=== PATIENT | female | born 1975 | race African-American/Black ===

== ENCOUNTER 2017-12-22 08:30 | Emergency (ER) | payer SELFPAY ==
[2017-12-22] MEDS ORDERED: METOPROLOL TAR 25 MG TAB ONE (09:04)
[2017-12-22] MEDS ORDERED: METOPROLOL TARTRATE 5 MG/5 ML INJ IV ONE (09:04)
--- NOTE | 2017-12-22 09:12 | RAD REPORT ---
EXAM DESCRIPTION: CT - Ct Stroke Brain Wo Cont - 12/22/2017 8:55 am CLINICAL HISTORY: Numbness COMPARISON: None. TECHNIQUE: Computed axial tomography of the head was obtained. IV contrast was not requested. All CT scans are performed using dose optimization technique as appropriate and may include automated exposure control or mA/KV adjustment according to patient size. FINDINGS: An intracranial bleed is not seen . The ventricles are normal in caliber. No extra-axial fluid collection is noted. Fluid within the sinuses/ mastoids is not seen. Mild mucoperiosteal thickening involves the right max illary sinus IMPRESSION: No acute intracranial abnormality is seen. If patient's symptoms persist MRI of the bra in would be recommended. The exam was discussed with Lisa in the in the Emergency Room 9:03 a.m. December 22, 2017
--- NOTE | 2017-12-22 09:42 | RAD REPORT ---
EXAM DESCRIPTION: Malena Single View12/22/2017 9:14 am CLINICAL HISTORY: Paresthesia COMPARISON: none FINDINGS: The lungs appear clear of acute infiltrate. The heart is normal size IMPRESSION: No acute abnormalities displayed
[2017-12-22 09:57] LABS: BUN Blood Urea Nitrogen 8 mg/dL (7-18); Bicarbonate 28 mmol/L (21-32); Glucose Level 90 mg/dL (74-106); Potassium 3.7 mmol/L (3.5-5.1); Sodium Level 140 mmol/L (136-145)
[2017-12-22 10:00] LABS: Absolute Monocytes 0.4 K/uL (0.1-1.3); Absolute Neutrophil 3.3 K/uL (1.8-8.0); Basophils % 0.8 % (0-1.3); Eosinophils % 0.6 % (0-4.4); Hematocrit 33.7 % (36.0-45.0); Lymphocytes % 20.9 % (15.3-44.8); MCH 27.6 pg (27.0-35.0); MPV 8.9 fL (7.6-11.3); Monocytes % 8.2 % (3.3-12.3); RBC Red Blood Cell Count 3.96 M/uL (3.86-4.86)
[2017-12-22 10:03] LABS: Protime INR 1.03
--- NOTE | 2017-12-22 10:26 | EKG ---
Test Date: 2017-12-22 Test Time: 09:00:15 Sales Appointment Coordinator: DAIANA MEASUREMENT RESULTS: Intervals: Rate: 85 OR: 146 QRSD: 86 QT: 374 QTc: 445 [place]: P: 53 OR: 146 QRS: 5 T: 16 INTERPRETIVE STATEMENTS: Normal sinus rhythm Voltage criteria for left ventricular hypertrophy Abnormal ECG No previous ECG available for comparison Electronically Signed On 12-22-17 10:25:56 CDT by Mauricio Chu
--- NOTE | 2017-12-22 11:03 | ER ---
Nurse's Notes [facility] Name: Ratna Balderrama Age: 42 yrs Sex: Female : 1975 Arrival Date: 12/22/2017 Time: 08:31 Bed 6 Private MD: Diagnosis: Headache;Dizziness Presentation: 12/22 08:35 Presenting complaint: Patient states: frontal and occipital headache x 1 week. c/o sv dizziness that started today around 0730 and right fingers started tingling, lasted about 5 minutes. Pt pulled over and got an orange juice and decided to come to ER. Denies blurry/double vision/SOB. Transition of care: patient was not received from another setting of care. Onset of symptoms was December 22, 2017. Risk Assessment: Do you want to hurt yourself or someone else? Patient reports no desire to harm self or others. Initial Sepsis Screen: Does the patient meet any 2 criteria? No. Patient's initial sepsis screen is negative. Does the patient have a suspected source of infection? No. Patient's initial sepsis screen is negative. Care prior to arrival: None. 08:35 Method Of Arrival: Ambulatory sv 08:35 Acuity: ABDIAS 2 sv Triage Assessment: 08:35 Headache History: The patient has had previous headaches and this one is different than sv previous episodes. General: Appears in no apparent distress. uncomfortable, well developed, Behavior is calm, cooperative, appropriate for age. Pain: Complains of pain in forehead, right mosque, left mosque, left occipital area, left base of the skull, right occipital area and right base of the skull Pain currently is 4 out of 10 on a pain scale. Quality of pain is described as pressure, Pain began 1 week Is continuous, Alleviated by nothing. Also complains of no other associated symptoms. EENT: No signs and/or symptoms were reported regarding the EENT system. Neuro: Level of Consciousness is awake, alert, obeys commands, Oriented to person, place, time, situation, Tribunal Member are equal bilaterally Moves all extremities. Full function Gait is steady, Speech is normal, Facial symmetry appears normal, Facial symmetry: tongue is midline, Denies blurred vision dizziness, numbness diplopia. Cardiovascular: Patient's skin is warm and dry. Pulses are 3+ in right radial artery and left radial artery Rhythm is sinus rhythm. Respiratory: Airway is patent Respiratory effort is even, unlabored, Respiratory pattern is regular, symmetrical. Derm: Skin is pink, warm \T\ dry. Musculoskeletal: Range of motion: intact in all extremities. 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 - Social history:: Smoking status: Patient/guardian denies using tobacco. - Ebola Screening: : No symptoms or risks identified at this time. Screenin:35 Abuse screen: Denies threats or abuse. Denies injuries from another. Nutritional sv screening: No deficits noted. Tuberculosis screening: No symptoms or risk factors identified. Fall Risk None identified. 09:10 Patient has been NPO before screening. The patient is alert, able to follow commands. sv The patient does not exhibit slurred or garbled speech The patient is not exhibiting difficulty speaking. The patient does not exhibit difficulty understanding words. The patient is able to swallow own secretions with no drooling or need for suction. Patient tolerated one teaspoon of water. No drooling, immediate coughing, gurgling, or clearing of the throat was noted. The patient tolerated 90mL of water. No drooling, immediate coughing, gurgling, or clearing of the throat was noted. The patient passed the bedside swallow screening. Oral medications may be given as ordered. Contact Physician for further diet orders. Provider notified of bedside swallow screening results: Sb Bojorquez MD. Assessment: 09:39 Reassessment: Patient appears in no apparent distress at this time. No changes from sv previously documented assessment. Patient and/or family updated on plan of care and expected duration. Pain level reassessed. Patient is alert, oriented x 3, equal unlabored respirations, skin warm/dry/pink. Vital Signs: 08:43 BP 194 / 116; Pulse 102 MON; Resp 18; Temp 98; Pulse Ox 100% on R/A; Weight 90.72 kg; sv Height 5 ft. 6 in. (167.64 cm); Pain 0/10; 08:58 BP 169 / 104; Pulse 90 MON; Resp 13; Pulse Ox 100% on R/A; sv 09:20 BP 177 / 100; Pulse 72; Resp 14; Pulse Ox 100% on R/A; sv 09:36 BP 168 / 96; Pulse 73; Resp 18; Pulse Ox 99% on R/A; sv 10:25 BP 166 / 91; Pulse 66 MON; Resp 14; Pulse Ox 100% on R/A; sv 08:43 Body Mass Index 32.28 (90.72 kg, 167.64 cm) sv 08:43 Sinus Rhythm sv 08:58 Sinus Rhythm sv 09:20 Sinus Rhythm sv 10:25 Sinus Rhythm sv ED Course: 08:31 Patient arrived in ED. as 08:35 Arm band placed on Patient placed in an exam room, on a stretcher, on engine monitor, sv on pulse oximetry. 08:35 Patient has correct armband on for positive identification. Placed in gown. Bed in low sv position. Call light in reach. threat monitoring analyst on. Pulse ox on. NIBP on. Door closed. Head of bed elevated. 08:43 Sb Bojorquez MD is Attending Physician. kdr 08:49 Pepper Valadez RN is Primary Nurse. sv 08:49 EKG done, by field service technician poultry. reviewed by Sb Bojorquez MD. at1 08:[address] via wheelchair. sv 08:54 CT Stroke Brain w/o Contrast In Process Unspecified. EDMS 09:05 Initial lab(s) drawn, by md, sent to lab. Inserted saline lock: 20 gauge in left sv antecubital area, using aseptic technique. Blood collected. Flushed left antecubital with 5 ml normal saline. 09:12 Stroke CXR 1 View In Process Unspecified. EDMS 09:34 Triage completed. sv 09:39 Lab(s) recollected, by ED staff, sent to lab. sv Administered Medications: 09:10 Drug: Lopressor 2.5 mg Route: IVP; Site: left antecubital; sv 09:21 CANCELLED (Dr Bojorquez cancelled): Lopressor 25 mg PO once sv 09:28 Drug: Lopressor 2.5 mg Route: IVP; Site: left antecubital; sv 09:29 Follow up: Response: No adverse reaction sv Point of Care Testing: Blood Glucose: 09:08 Blood Glucose: 121 mg/dL; sv Ranges: Outcome: 11:02 Discharge ordered by . kdr 11:37 Patient left the ED. sg Signatures: Dispatcher [employer] Pepper Mccord RN RN sv Gay, Steven, RN RN sg Rittger, Kevin, MD MD kdr Martinez, Amelia as Gonzales, Amanda, electrical instrument maker EKG Tat1
--- NOTE | 2017-12-22 11:03 | EDPHYS ---
Physician Documentation [facility] Name: Ratna Balderrama Age: 42 yrs Sex: Female : 1975 Arrival Date: 12/22/2017 Time: 08:31 Bed 6 Private MD: ED Physician Sb Bojorquez HPI: 12/22 15:49 This 42 yrs old Black Female presents to ER via Ambulatory with complaints of Headache, kdr Dizziness. 15:50 The patient has been under a lot of stress with her mother in the hospital recently. kdr She was tearful on initial evaluation. She has not had this before. She also c/o a GARCIA for the past week. She has not had this before either.. Onset: The symptoms/episode began/occurred gradually, 1 week(s) ago. Severity of symptoms: At their worst the symptoms were mild moderate just prior to arrival, in the emergency department the symptoms are unchanged. The patient has not experienced similar symptoms in the past. 16:44 The patient has not recently seen a physician. 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 - Social history:: Smoking status: Patient/guardian denies using tobacco. - Ebola Screening: : No symptoms or risks identified at this time. ROS: 16:44 Constitutional: Negative for fever, chills, and weight loss, Eyes: Negative for injury, kdr pain, redness, and discharge, ENT: Negative for injury, pain, and discharge, Neck: Negative for injury, pain, and swelling, Cardiovascular: Negative for chest pain, palpitations, and edema, Respiratory: Negative for shortness of breath, cough, wheezing, and pleuritic chest pain, Abdomen/GI: Negative for abdominal pain, nausea, vomiting, diarrhea, and constipation, Back: Negative for injury and pain, : Negative for injury, bleeding, discharge, and swelling, MS/Extremity: Negative for injury and deformity, Skin: Negative for injury, rash, and discoloration, Psych: Negative for depression, anxiety, suicide ideation, homicidal ideation, and hallucinations, Allergy/Immunology: Negative for hives, rash, and allergies, Endocrine: Negative for neck swelling, polydipsia, polyuria, polyphagia, and marked weight changes, Hematologic/Lymphatic: Negative for swollen nodes, abnormal bleeding, and unusual bruising. 16:44 Neuro: Positive for headache, tingling, weakness, Negative for altered mental status, gait disturbance, hearing loss, loss of consciousness, numbness, seizure activity, speech changes, syncope, near syncope. Exam: 16:44 Constitutional: This is a well developed, well nourished patient who is awake, alert, kdr and in no acute distress. Head/Face: Normocephalic, atraumatic. Eyes: Pupils equal round and reactive to light, extra-ocular motions intact. Lids and lashes normal. Conjunctiva and sclera are non-icteric and not injected. Cornea within normal limits. Periorbital areas with no swelling, redness, or edema. Neck: Trachea midline, no thyromegaly or masses palpated, and no cervical lymphadenopathy. Supple, full range of motion without nuchal rigidity, or vertebral point tenderness. No Meningismus. Chest/axilla: Normal chest wall appearance and motion. Nontender with no deformity. No lesions are appreciated. Cardiovascular: Regular rate and rhythm with a normal S1 and S2. No gallops, murmurs, or rubs. Normal PMI, no JVD. No pulse deficits. Respiratory: Lungs have equal breath sounds bilaterally, clear to auscultation and percussion. No rales, rhonchi or wheezes noted. No increased work of breathing, no retractions or nasal flaring. Abdomen/GI: Soft, non-tender, with normal bowel sounds. No distension or tympany. No guarding or rebound. No evidence of tenderness throughout. Back: No spinal tenderness. No costovertebral tenderness. Full range of motion. Skin: Warm, dry with normal turgor. Normal color with no rashes, no lesions, and no evidence of cellulitis. MS/ Extremity: Pulses equal, no cyanosis. Neurovascular intact. Full, normal range of motion. Neuro: Awake and alert, GCS 15, oriented to person, place, time, and situation. Cranial nerves II-XII grossly intact. Motor strength 5/5 in all extremities. Sensory grossly intact. Cerebellar exam normal. Normal gait. Psych: Awake, alert, with orientation to person, place and time. Behavior, mood, and affect are within normal limits. Vital Signs: 08:43 BP 194 / 116; Pulse 102 MON; Resp 18; Temp 98; Pulse Ox 100% on R/A; Weight 90.72 kg; sv Height 5 ft. 6 in. (167.64 cm); Pain 0/10; 08:58 BP 169 / 104; Pulse 90 MON; Resp 13; Pulse Ox 100% on R/A; sv 09:20 BP 177 / 100; Pulse 72; Resp 14; Pulse Ox 100% on R/A; sv 09:36 BP 168 / 96; Pulse 73; Resp 18; Pulse Ox 99% on R/A; sv 10:25 BP 166 / 91; Pulse 66 MON; Resp 14; Pulse Ox 100% on R/A; sv 08:43 Body Mass Index 32.28 (90.72 kg, 167.64 cm) sv 08:43 Sinus Rhythm sv 08:58 Sinus Rhythm sv 09:20 Sinus Rhythm sv 10:25 Sinus Rhythm sv MDM: 11:02 Patient medically screened. kdr 16:44 Data reviewed: vital signs, nurses notes, lab test result(s), radiologic studies. kdr Counseling: I had a detailed discussion with the patient and/or guardian regarding: the historical points, exam findings, and any diagnostic results supporting the discharge/admit diagnosis, lab results, radiology results, the need for outpatient follow up. 12/22 08:44 Order name: Basic Metabolic Panel kdr 12/22 08:44 Order name: CBC with Diff kdr 12/22 08:44 Order name: Protime (+inr) kdr 12/22 08:44 Order name: Ptt, Activated kdr 12/22 08:44 Order name: CT Stroke Brain w/o Contrast; Complete Time: 10:16 kdr 12/22 09:16 Order name: Glucose, Ancillary Testing; Complete Time: 10:16 EDMS 12/22 08:44 Order name: Stroke CXR 1 View; Complete Time: 10:16 kdr 12/22 08:44 Order name: EKG; Complete Time: 08:44 kdr 12/22 08:44 Order name: Accucheck; Complete Time: 09:22 kdr 12/22 08:44 Order name: Cardiac monitoring; Complete Time: 09:22 kdr 12/22 08:44 Order name: EKG - Nurse/Tech; Complete Time: 09: kdr 12/22 08:44 Order name: IV Saline Lock; Complete Time: : kdr 12/22 08:44 Order name: Labs collected and sent; Complete Time: : kdr 12/22 08:44 Order name: NPO; Complete Time: : kdr 12/22 08:44 Order name: O2 Per Protocol; Complete Time: : kdr 12/22 08:44 Order name: O2 Sat Monitoring; Complete Time: : kdr 12/22 08:44 Order name: Stroke Swallow Screen; Complete Time: : kdr 12/22 09:25 Order name: Labs - recollect needed; Complete Time: 09:39 bd Administered Medications: 09:10 Drug: Lopressor 2.5 mg Route: IVP; Site: left antecubital; sv 09:21 CANCELLED (Dr Bojorquez cancelled): Lopressor 25 mg PO once sv 09:28 Drug: Lopressor 2.5 mg Route: IVP; Site: left antecubital; sv 09:29 Follow up: Response: No adverse reaction sv Point of Care Testing: Blood Glucose: 09:08 Blood Glucose: 121 mg/dL; sv Ranges: Critical Glucose Levels:Adult <50 mg/dl or >400 mg/dl <40 mg/dl or >180 mg/dl Disposition: 12/22/17 11:02 Discharged to Home. Impression: Headache, Dizziness. - Condition is Fair. - Discharge Instructions: General Headache Without Cause, Pain Without a Known Cause, Hypertension, [id number], Dizziness, [id number]. - Medication Reconciliation Form, Thank You Letter, Work release form form. - Follow up: Private Physician; When: 2 - 3 days; Reason: If symptoms return, Further diagnostic work-up, Recheck today's complaints, Continuance of care, Re-evaluation by your physician. - Problem is new. - Symptoms have improved. - Notes: You will need to follow-up with your doctor to watch your blood pressure and possibly start on medication Signatures: Dispatcher [employer] EDSamara Carreno Stephanie, RN RN sv Gay, Steven, RN RN sg Rittger, Kevin, MD MD kdr Corrections: (The following items were deleted from the chart) 09:21 08:50 Lopressor 25 mg PO once ordered. kdr sv 11:37 11:02 12/22/2017 11:02 Discharged to Home. Impression: Headache; Dizziness. Condition sg is Fair. Forms are Medication Reconciliation Form, Thank You Letter, Antibiotic Education, Prescription Opioid Use. Follow up: Private Physician; When: 2 - 3 days; Reason: If symptoms return, Further diagnostic work-up, Recheck today's complaints, Continuance of care, Re-evaluation by your physician. Problem is new. Symptoms have improved. kdr
== END 2017-12-22 11:37 | disposition home or self-care (01) ==
LOC: ER 08:30
DX: R42 Dizziness and giddiness (principal)
CPT/HCPCS: 36415; 70450; 71045; 80048; 82962; 85025; 85610; 85730; 93005; 96374; 99285

== ENCOUNTER 2021-07-29 20:56 | Emergency (ER) | payer OTHER ==
[2021-07-29] MEDS ORDERED: ONDANSETRON 4 MG/2 ML VIAL ONE (23:08)
[2021-07-29] MEDS ORDERED: MORPHINE 4 MG/ML SYR ONE (23:08)
[2021-07-29] MEDS ORDERED: NA CHLORIDE 0.9% 1,000 ML ONE (23:09)
[2021-07-29 23:12] LABS: Absolute Lymphocytes (CBC) 1.9 K/uL (0.7-4.9); Hematocrit 37.4 % (36.0-45.0); Lymphocytes % 23.3 % (15.3-44.8); MPV 8.1 fL (7.6-11.3); RBC Red Blood Cell Count 4.28 M/uL (3.86-4.86)
[2021-07-29 23:23] LABS: Albumin 3.6 g/dL (3.4-5.0); Bilirubin Total 0.2 mg/dL (0.2-1.0); Potassium 3.8 mmol/L (3.5-5.1); Protein, Total 7.8 g/dL (6.4-8.2)
[2021-07-29 23:33] LABS: Urine Blood 2+ (Negative); Urine Glucose Negative (Negative); Urine Protein Negative (Negative)
[2021-07-29 23:57] LABS: Urine Bacteria <20 /HPF (<20); Urine Trichomonas PRESENT (NONE SEEN); Urine Urothelial Cells <5 /HPF (NONE SEEN)
--- NOTE | 2021-07-30 00:59 | ER ---
Nurse's Notes [facility] Name: Ratna Balderrama Age: 46 yrs Sex: Female : 1975 Arrival Date: 07/29/2021 Time: 20:58 Bed 23 Private MD: Diagnosis: Trichomoniasis, unspecified Presentation: 07/29 21:34 Chief complaint: Patient states: For the last 2 days c/o right back pain/pressure, "I ll3 think its gas but my boss wanted me to come get checked out, when I take a deep breath I have a sharp pain there". Coronavirus screen: Vaccine status: Patient reports being unvaccinated. At this time, the client does not indicate any symptoms associated with coronavirus-19. Ebola Screen: No symptoms or risks identified at this time. Initial Sepsis Screen: Does the patient meet any 2 criteria? No. Patient's initial sepsis screen is negative. Does the patient have a suspected source of infection? No. Patient's initial sepsis screen is negative. Risk Assessment: Do you want to hurt yourself or someone else? Patient reports no desire to harm self or others. Onset of symptoms was July 27, 2021. 21:34 Method Of Arrival: Ambulatory ll3 21:34 Acuity: ABDIAS 3 ll3 Triage Assessment: 21:41 General: Appears uncomfortable, Behavior is calm, cooperative. Pain: Complains of pain ll3 in right mid back Pain currently is 6 out of 10 on a pain scale. Quality of pain is described as sharp, stabbing, Pain began 2-3 days ago. Is continuous, Aggravated by Taking a deep breath. Neuro: Level of Consciousness is awake, alert, obeys commands, Oriented to person, place, time, situation. Respiratory: Reports pain with respiration Respiratory effort is even, unlabored, Respiratory pattern is regular, symmetrical, Denies cough, shortness of breath labored breathing. Derm: Skin is pink, warm \\T\\ dry. Musculoskeletal: Circulation, motion, and sensation intact. 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 - Social history:: Smoking status: Patient denies any tobacco usage or history of. Screenin:30 Abuse screen: Denies threats or abuse. Nutritional screening: No deficits noted. jb4 Tuberculosis screening: No symptoms or risk factors identified. Fall Risk None identified. Assessment: 23:28 Reassessment: Patient appears in no apparent distress at this time. Patient and/or jb4 family updated on plan of care and expected duration. Pain level reassessed. Patient is alert, oriented x 3, equal unlabored respirations, skin warm/dry/pink. 07/30 01:28 Reassessment: Patient appears in no apparent distress at this time. Patient and/or jb4 family updated on plan of care and expected duration. Pain level reassessed. Patient is alert, oriented x 3, equal unlabored respirations, skin warm/dry/pink. Vital Signs: 07/29 21:34 BP 183 / 89; Pulse 92; Resp 17; Temp 98.2(TE); Pulse Ox 100% on R/A; Weight 129.27 kg; ll3 Height 5 ft. 6 in. (167.64 cm) (R); Pain 6/10; 07/30 00:11 BP 169 / 98; Pulse 88; Resp 16; Pulse Ox 100% on R/A; jb4 07/29 21:34 Body Mass Index 46.00 (129.27 kg, 167.64 cm) ll3 ED Course: 07/29 20:58 Patient arrived in ED. jj6 21:41 Triage completed. ll3 21:41 Arm band placed on right wrist. ll3 22:30 Darinel Hoffmann NP is PHCP. pm1 22:30 Arsh Irving MD is Attending Physician. pm1 22:43 Wilbert Mauricio, LEWIS is Primary Nurse. jb4 23:30 Patient has correct armband on for positive identification. Placed in gown. Bed in low jb4 position. Call light in reach. Side rails up X 1. 07/30 00:01 CT Abd/Pelvis - IV Contrast Only In Process Unspecified. EDMS 01:30 No provider procedures requiring assistance completed. IV discontinued, intact, jb4 bleeding controlled, No redness/swelling at site. Pressure dressing applied. Administered Medications: 07/29 23:16 Drug: NS 0.9% 1000 ml Route: IV; Rate: 1000 ml; Site: right antecubital; jb4 07/30 00:00 Follow up: Response: No adverse reaction; IV Status: Completed infusion 4 07/29 23:16 Not Given (Patient Refused): morphine 4 mg IVP once over 4 mins 4 23:17 Not Given (Patient Refused): Zofran (Ondansetron) 4 mg IVP once; over 2 minutes jb4 07/30 01:21 Drug: metroNIDAZOLE 2 grams Route: PO; jb4 01:30 Follow up: Response: Medication administered at discharge. [facility] Outcome: 00:58 Discharge ordered by MD. pm1 01:30 Discharged to home ambulatory. jb4 01:30 Condition: stable 01:30 Discharge instructions given to patient, Instructed on discharge instructions, follow up and referral plans. Demonstrated understanding of instructions, follow-up care. 01:30 Patient left the ED. 4 Signatures: Dispatcher [employer] EDMS Darinel Hoffmann NP BOAT CANVAS INSTALLER pm1 Wilbert Mauricio RN RN jb4 Corinne [id number] Rae Morton RN RN ll3 Corrections: (The following items were deleted from the chart) : 00:11 Abuse screen: Denies threats or abuse. 4 00:11 Nutritional screening: No deficits noted. 4 00:11 Tuberculosis screening: No symptoms or risk factors identified. 4 00:11 Fall Risk None identified. 4 4
--- NOTE | 2021-07-30 00:59 | EDPHYS ---
Physician Documentation [facility] Name: Ratna Balderrama Age: 46 yrs Sex: Female : 1975 Arrival Date: 07/29/2021 Time: 20:58 Bed 23 Private MD: ED Physician Arsh Irving HPI: 07/29 22:46 This 46 yrs old Black Female presents to ER via Ambulatory with complaints of Back Pain.pm1 22:46 The patient presents with pain that is acute. The symptoms are located in the low back. pm1 Onset: The symptoms/episode began/occurred 2 day(s) ago. The pain does not radiate. Associated signs and symptoms: The patient has no apparent associated signs or symptoms, Pertinent negatives: chest pain, dysuria, fever, nausea, vomiting. Modifying factors: The patient symptoms are alleviated by nothing, the patient symptoms are aggravated by deep breathing. Severity of symptoms: in the emergency department the symptoms are unchanged. The patient has not experienced similar symptoms in the past. The patient has not recently seen a physician. 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 - Social history:: Smoking status: Patient denies any tobacco usage or history of. ROS: 22:46 Constitutional: Negative for fever, chills, and weight loss, Cardiovascular: Negative pm1 for chest pain, palpitations, and edema, Respiratory: Negative for shortness of breath, cough, wheezing, and pleuritic chest pain, Abdomen/GI: Negative for abdominal pain, nausea, vomiting, diarrhea, and constipation. 22:46 : Negative for injury, bleeding, discharge, and swelling, MS/Extremity: Negative for injury and deformity, Skin: Negative for injury, rash, and discoloration, Neuro: Negative for headache, weakness, numbness, tingling, and seizure. 22:46 Back: Positive for of the low back area. 22:46 All other systems are negative. Exam: 22:46 Constitutional: This is a well developed, well nourished patient who is awake, alert, pm1 and in no acute distress. Head/Face: Normocephalic, atraumatic. 22:46 Back: No spinal tenderness. No costovertebral tenderness. Full range of motion. Skin: Warm, dry with normal turgor. Normal color with no rashes, no lesions, and no evidence of cellulitis. MS/ Extremity: Pulses equal, no cyanosis. Neurovascular intact. Full, normal range of motion. 22:46 Cardiovascular: Exam negative for acute changes, Rate: normal, Rhythm: regular, Pulses: no pulse deficits are appreciated, Heart sounds: normal, normal S1and S2. 22:46 Respiratory: Exam negative for acute changes, respiratory distress, shortness of breath, Breath sounds: are clear throughout. 22:46 Abdomen/GI: Inspection: obese Palpation: soft, in all quadrants, mild abdominal tenderness, in the epigastric area. 22:46 Neuro: Exam negative for acute changes, Orientation: is normal, Mentation: is normal, Motor: is normal, moves all fours. Vital Signs: 21:34 BP 183 / 89; Pulse 92; Resp 17; Temp 98.2(TE); Pulse Ox 100% on R/A; Weight 129.27 kg; ll3 Height 5 ft. 6 in. (167.64 cm) (R); Pain 6/10; 06 00:11 BP 169 / 98; Pulse 88; Resp 16; Pulse Ox 100% on R/A; jb4 07/29 21:34 Body Mass Index 46.00 (129.27 kg, 167.64 cm) ll3 MDM: 07/29 22:38 Patient medically screened. pm1 07/30 00:57 Data reviewed: vital signs. Data interpreted: Pulse oximetry: on room air is 100 %. pm1 Interpretation: normal. Counseling: I had a detailed discussion with the patient and/or guardian regarding: the historical points, exam findings, and any diagnostic results supporting the discharge/admit diagnosis, lab results, radiology results, the need for outpatient follow up, to return to the emergency department if symptoms worsen or persist or if there are any questions or concerns that arise at home. 07/29 22:40 Order name: CBC with Diff; Complete Time: 23:35 pm1 07/29 22:40 Order name: CMP; Complete Time: 23:35 pm1 07/29 22:40 Order name: Lipase; Complete Time: 23:35 pm1 07/29 23:34 Order name: Urine Dipstick-Ancillary; Complete Time: 23:35 EDMS 07/29 23:36 Order name: Urine Microscopic Only; Complete Time: 00:02 [facility] 07/29 23:36 Order name: Urine Culture [facility] 07/29 22:40 Order name: CT Abd/Pelvis - IV Contrast Only 1 07/29 22:40 Order name: IV Saline Lock; Complete Time: 22:59 pm1 07/29 22:40 Order name: Labs collected and sent; Complete Time: 22:59 pm1 07/29 23:37 Order name: Urine --Ancillary (enter results); Complete Time: 00:02 2 07/29 22:40 Order name: Urine Dipstick-Ancillary (obtain specimen); Complete Time: 23:22 pm1 07/29 22:40 Order name: Urine Test (obtain specimen); Complete Time: 23:23 pm1 Administered Medications: 07/29 23:16 Drug: NS 0.9% 1000 ml Route: IV; Rate: 1000 ml; Site: right antecubital; [facility] 07/30 00:00 Follow up: Response: No adverse reaction; IV Status: Completed infusion [facility] 07/29 23:16 Not Given (Patient Refused): morphine 4 mg IVP once over 4 mins [facility] 23:17 Not Given (Patient Refused): Zofran (Ondansetron) 4 mg IVP once; over 2 minutes [facility] 07/30 01:21 Drug: metroNIDAZOLE 2 grams Route: PO; 4 01:30 Follow up: Response: Medication administered at discharge. [facility] Disposition: 07:19 Co-signature as Attending Physician, Arsh Irving MD. [email or web address] Disposition Summary: 07/30/21 00:58 Discharge Ordered Location: Home pm1 Problem: new pm1 Symptoms: have improved pm1 Condition: Stable pm1 Diagnosis - Trichomoniasis, unspecified pm1 Followup: pm1 - With: Emergency Department - When: As needed - Reason: Worsening of condition Followup: pm1 - With: Private Physician - When: 2 - 3 days - Reason: Recheck today's complaints, Continuance of care, Re-evaluation by your physician Discharge Instructions: - Discharge Summary Sheet pm1 - Acute Back Pain, Adult pm1 - Trichomoniasis pm1 Forms: - Medication Reconciliation Form pm1 - Thank You Letter pm1 - Antibiotic Education pm1 - Prescription Opioid Use pm1 Signatures: Dispatcher [employer] Darinel Bañuelos, JONAH SWAGER OPERATOR pm1 Wilbert Mauricio, RN RN [id number] Arsh Irving MD MD mh7 Rae Morton RN RN ll3
[2021-07-30] MEDS ORDERED: metroNIDAZOLE 500 MG TABLET ONE (01:20)
[2021-07-30 01:37] VITALS: TEMP 98.2; O2SAT 100
[2021-07-30 01:38] VITALS: BP 169/98
--- NOTE | 2021-07-30 11:59 | RAD REPORT ---
EXAM DESCRIPTION: Abdomen Pelvis W Contrast RadLex: CT ABDOMEN PELVIS WITH IV CONTRAST CLINICAL HISTORY: Epigastric pain. COMPARISON: None. TECHNIQUE: CT of the abdomen and pelvis was performed following intravenous administration of iodina rashmi contrast. Portal venous phase images to the abdomen, and delayed phase images to the abdomen and pelvis were obtained. Oral contrast was not administered. Axial, coronal, and sagittal soft tissue wi ndow reconstructions were created and sent to PACS. This exam was performed according to our departmental dose-optimization program, which includes autom ated exposure control, adjustment of the mA and/or kV according to patient size and/or use of iterati ve reconstruction technique. FINDINGS: Thoracic: Suspected mild atelectasis in the right and left lower lobes. Hepatobiliary: Faintly hyperenhancing lesion in the periphery of the inferior right hepatic lobe (seg ment six) measuring 2.3 cm, seen on axial series 401 image 30, on the portal venous phase images, whi ch becomes isoenhancing on the delayed phase images. The portal veins are patent. The gallbladder is unremarkable. No biliary ductal dilatation. Pancreas: Unremarkable. Spleen: Unremarkable. Gastrointestinal: Moderate amount of fecal material in the right colon. No evidence of bowel obstruct ion or perienteric inflammation. The appendix is normal. Adrenals: No abnormality identified in either adrenal gland. Renal: No concerning parenchymal abnormality in either kidney. No hydronephrosis or urolithiasis. Bladder/Reproductive: Unremarkable appearance of the urinary bladder by CT technique. Vascular/Lymphatics: No lymphadenopathy identified by CT size criteria. Abdominal aorta is normal in caliber. Few small bilateral calcified pelvic phleboliths. Musculoskeletal: No concerning osseous lesion identified. Fluid / peritoneum: No significant free fluid. No free intraperitoneal air identified. IMPRESSION 1. No acute abnormality identified in the abdomen or pelvis by CT. 2. Small enhancing right hepatic lobe lesion, favored a benign adenoma. Recommend correlation with nonemergent hepatic protocol MRI or CT. Electronically signed by: Albina Orr MD 07/30/2021 12:26 AM CDT Due to temporary technical issues with the PACS/Fluency reporting system, reports are being signed by the in house radiologists without review as a courtesy to insure prompt reporting. The interpreting radiologist is fully responsible for the content of the report.
== END 2021-07-30 01:30 | disposition home or self-care (01) ==
LOC: ER 20:56
DX: A59.9 Trichomoniasis, unspecified (principal); R10.816 Epigastric abdominal tenderness; I10 Essential (primary) hypertension
CPT/HCPCS: 87088; 85025; 87086; 36415; 81025; 83690; 80053; 74177; 96360; 99283; Q9967; J7030; 81003; 81015; J2405

== ENCOUNTER 2024-03-09 19:55 | Emergency (ER) | payer BC, SELFPAY ==
[2024-03-09] MEDS ORDERED: AMLODIPINE 10 MG TAB ONE (20:38)
[2024-03-09] MEDS ORDERED: cloNIDine HCL 0.1 MG TAB ONE (20:38)
[2024-03-09] MEDS ORDERED: DIAZEPAM 5 MG TABLET ONE (20:39)
[2024-03-09 20:48] LABS: Absolute Basophils 0.1 K/uL (0-0.5); Absolute Eosinophils 0.1 K/uL (0-0.5); Absolute Lymphocytes (CBC) 1.5 K/uL (0.7-4.9); Absolute Monocytes 0.5 K/uL (0.1-1.3); Basophils % 0.6 % (0-1.3); Eosinophils % 1.5 % (0-4.4); Hematocrit 36.9 % (36.0-45.0); Hemoglobin 11.6 g/dL (12.0-15.0); MCH 26.2 pg (27.0-35.0); MCHC 31.4 g/dL (32.0-36.0); MCV 83.5 fL (80-100); MPV 7.9 fL (7.6-11.3); Monocytes % 6.5 % (3.3-12.3); Neutrophils % 73.4 % (41.7-73.7); Nucleated Red Blood Cells % 0.1 % (0-0); Platelets 338 thou/uL (152-406); RBC Red Blood Cell Count 4.41 M/uL (3.86-4.86); Red Cell Distribution Width 16.5 % (12.1-15.2)
[2024-03-09 20:49] LABS: Protime INR 0.98
[2024-03-09 21:06] LABS: ALT/SGPT 17 U/L (13-56); AST/SGOT 11 U/L (15-37); Albumin 3.5 g/dL (3.4-5.0); Albumin/Globulin Ratio 0.8 (1.1-1.8); Alkaline Phosphatase 69 U/L (45-117); Anion Gap 8.4 mEq/L (5.0-15.0); BUN Blood Urea Nitrogen 12 mg/dL (7-18); Bicarbonate 26 mEq/L (21-32); Bilirubin Total 0.2 mg/dL (0.2-1.0); Globulin 4.6 g/dL (2.3-3.5); Glomerular Filtration Rate 98 ml/min (=/>90); Glucose Level 103 mg/dL (74-106); Magnesium 2.1 mg/dL (1.6-2.4); NT PRO-BNP 298 pg/mL (<125); Potassium 3.4 mEq/L (3.5-5.1); Protein, Total 8.1 g/dL (6.4-8.2); Sodium Level 134 mEq/L (136-145); Troponin High Sensitivity 12.8 pg/mL (<58.9)
[2024-03-09 21:11] LABS: Bilirubin Direct < 0.2 mg/dL (0-0.2)
[2024-03-09 21:19] LABS: Thyroid Stimulating Hormone 2.38 uIU/mL (0.358-3.740)
--- NOTE | 2024-03-09 22:33 | EDPHYS ---
Physician Documentation [facility] Name: Ratna Balderrama Age: 48 yrs Sex: Female : 1975 Arrival Date: 03/09/2024 Time: 19:55 Bed 6 Private MD: ED Physician Adam Mcclellan HPI: 03/09 20:09 This 48 yrs old Black Female presents to ER via Unassigned with complaints of High sp4 Blood Pressure. 03/10 05:45 48-year-old female presents with complaint of elevated blood pressures. Patient states sp4 in the past she was on amlodipine 5 mg daily but has not been taking it for the last 2 years . Patient denied any symptoms but reports that she felt her blood pressure was getting up too high. ADVISORY INTERN: 03/09 20:49 unknown al5 Historical: - Allergies: 20:24 No Known Allergies; kl - PMHx: 20:24 Hypertensive disorder; kl - PSHx: 20:24 Ligation of fallopian tube; kl - Immunization history:: Client reports having NOT received the Covid vaccine. - Infectious Disease History:: Denies. - Social history:: Smoking status: Patient denies any tobacco usage or history of. - Family history:: not pertinent. ROS: 03/10 05:45 Constitutional: Negative for fever, chills, and weight loss, positive for elevated sp4 blood pressure All other systems are negative, Exam: 03/09 22:34 Constitutional: This is a well developed, well nourished patient who is awake, alert, sp4 and in no acute distress. Head/Face: Normocephalic, atraumatic. Eyes: Pupils equal round and reactive to light, extra-ocular motions intact. Lids and lashes normal. Conjunctiva and sclera are not injected. Cornea within normal limits. Periorbital areas with no swelling, redness, or edema. ENT: Nares patent. No nasal discharge, no septal abnormalities noted. Tympanic membranes are normal and external auditory canals are clear. Oropharynx with no redness, swelling, or masses, exudates, or evidence of obstruction, uvula midline. Mucous membranes moist. Neck: Trachea midline, no thyromegaly or masses palpated, and no cervical lymphadenopathy. Supple, full range of motion without nuchal rigidity, or vertebral point tenderness. Chest/axilla: Normal chest wall appearance and motion. Nontender with no deformity. No lesions are appreciated. Cardiovascular: Regular rate and rhythm with a normal S1 and S2. No gallops, murmurs, or rubs. Normal PMI, no JVD. No pulse deficits. Respiratory: Lungs have equal breath sounds bilaterally, clear to auscultation and percussion. No rales, rhonchi or wheezes noted. No increased work of breathing, no retractions or nasal flaring. Abdomen/GI: Soft, with normal bowel sounds. No distension or tympany. No guarding or rebound. No evidence of tenderness throughout. Back: No spinal tenderness. No costovertebral tenderness. Skin: Warm, dry with normal turgor. Normal color with no rashes, no lesions, and no evidence of cellulitis. MS/ Extremity: Pulses equal, no cyanosis. Neurovascular intact. Full, normal range of motion. Neuro: Awake and alert, GCS 15, oriented to person, place, time, and situation. Cranial nerves II-XII grossly intact. Motor strength 5/5 in all extremities. Sensory grossly intact. Psych: Awake, alert, with orientation to person, place and time. Behavior, mood, and affect are within normal limits ECG was reviewed by the Attending Physician. EKG 1 sinus tachycardia rate 102 Vital Signs: 20:22 BP 214 / 123; Pulse 110; Resp 18; Temp 99.2; Pulse Ox 100% ; Weight 106.59 kg; Height 5 kl ft. 6 in. ; 20:30 BP 199 / 124; Pulse 99; Resp 18; Pulse Ox 100% on R/A; al5 20:45 BP 198 / 114; Pulse 96; Resp 21; Pulse Ox 100% on R/A; al5 21:00 BP 178 / 99; Pulse 91; Resp 11; Pulse Ox 100% on R/A; al5 21:15 BP 172 / 105; Pulse 88; Resp 14; Pulse Ox 100% on R/A; al5 21:30 BP 184 / 103; Pulse 85; Resp 17; Pulse Ox 97% on R/A; al5 22:00 BP 168 / 93; Pulse 78; Resp 17; Pulse Ox 97% on R/A; al5 22:30 BP 162 / 94; Pulse 81; Resp 17; Pulse Ox 97% on R/A; al5 20:22 Body Mass Index 37.93 (106.59 kg, 167.64 cm) kl Karolina Coma Score: 03/10 05:45 Eye Response: spontaneous(4). Motor Response: obeys commands(6). Verbal Response: sp4 oriented(5). Total: 15. MDM: 03/09 20:20 Medical Screening Exam initiated sp4 03/10 05:46 Differential diagnosis: hypertensive crisis, Malignant HTN, Uncontrolled hypertension. sp4 Data reviewed: vital signs, nurses notes, old medical records, lab test result(s), EKG. 05:47 Consideration of Admission/Observation Escalation of care including sp4 admission/observation considered. ED course: No sign of heart failure, no sign of renal failure, patient stable for discharge home with amlodipine 10 mg p.o. daily. Advised follow-up with primary care physician in 2 weeks for blood pressure check in office and adjustment of blood pressure medication.. 03/09 20:19 Order name: Basic Metabolic Panel; Complete Time: 21:58 [facility] 03/09 20:19 Order name: CBC with Diff; Complete Time: 21:58 [facility] 03/09 20:19 Order name: LFT's; Complete Time: 21:58 [facility] 03/09 20:19 Order name: Magnesium; Complete Time: 21:58 [facility] 03/09 20:19 Order name: NT PRO-BNP; Complete Time: 21:58 4 03/09 20:19 Order name: PT-INR; Complete Time: 21:58 [facility] 03/09 20:19 Order name: Troponin HS; Complete Time: 21:58 [facility] 03/09 20:28 Order name: TSH; Complete Time: 21:58 [facility] 03/09 20:28 Order name: T4 Free; Complete Time: 21:58 [facility] 03/09 20:19 Order name: EKG; Complete Time: 20:20 [facility] 03/09 20:19 Order name: Cardiac monitoring; Complete Time: 20:43 [facility] 03/09 20:19 Order name: EKG - Nurse/Tech; Complete Time: 20:43 [facility] 03/09 20:19 Order name: IV Saline Lock; Complete Time: 20:43 [facility] 03/09 20:19 Order name: Labs collected and sent; Complete Time: 20:43 [facility] 03/09 20:19 Order name: O2 Per Protocol; Complete Time: 20:21 sp4 03/09 20:19 Order name: O2 Sat Monitoring; Complete Time: 20: sp4 EC/09 20:31 Rate is 102 beats/min. Rhythm is regular, Sinus tachycardia. QRS Castile is Normal. MA sp4 interval is normal. QRS interval is normal. QT interval is normal. No Q waves. T waves are Normal. No ST changes noted. Clinical impression: No evidence of ischemia. Interpreted by me. Reviewed by me. Administered Medications: 20:43 Drug: cloNIDine PO 0.1 mg PO once Route: PO; al5 22:44 Follow up: Response: No adverse reaction; Blood pressure is lowered al5 20:43 Drug: amLODIPine PO 10 mg PO once Route: PO; al5 22:44 Follow up: Response: No adverse reaction; Blood pressure is lowered al5 20:43 Not Given (Patient Refused): diazepam5 mg PO once al5 Disposition Summary: 03/09/24 22:32 Discharge Ordered Problem: new sp4 Symptoms: have improved sp4 Condition: Stable sp4 Diagnosis - Essential (primary) hypertension sp4 - Acute hypertensive urgency, sp4 Followup: sp4 - With: Private Physician - When: 10 - 14 days - Reason: Recheck today's complaints Discharge Instructions: - Discharge Summary Sheet sp4 - Hypertension, Adult, [id number]-ip-Fovl sp4 Forms: - Patient Portal Instructions sp4 Prescriptions: - amlodipine 10 mg Oral tablet - take 1 tablet ORAL route daily; 90 tablet; Refills: 0, Product Selection sp4 Permitted Signatures: Dispatcher [employer] Laura Chambers, RN Adam Rodríguez MD MD sp4 Noreen Aguilar RN RN al5
--- NOTE | 2024-03-09 22:33 | ER ---
Nurse's Notes [facility] Name: Ratna Balderrama Age: 48 yrs Sex: Female : 1975 Arrival Date: 03/09/2024 Time: 19:55 Bed 6 Private MD: Diagnosis: Essential (primary) hypertension;Acute hypertensive urgency, Presentation: 03/09 20:22 Chief complaint: Patient states: I think my bp is high. I have head pressure and left kl shoulder feels heavy. Coronavirus screen: Client denies travel out of the [place] in the last 14 days. At this time, the client does not indicate any symptoms associated with coronavirus-19. Ebola Screen: Patient negative for fever greater than or equal to 101.5 degrees Fahrenheit, and additional compatible Ebola Virus Disease symptoms Patient denies exposure to infectious person. Patient denies travel to an Ebola-affected area in the 21 days before illness onset. No symptoms or risks identified at this time. Initial Sepsis Screen: Does the patient meet any 2 criteria? No. Patient's initial sepsis screen is negative. Does the patient have a suspected source of infection? No. Patient's initial sepsis screen is negative. Risk Assessment: Do you want to hurt yourself or someone else? Patient reports no desire to harm self or others. Note out of amlodipne. Onset of symptoms was March 09, 2024. Care prior to arrival: None. Activity prior to arrival: None. 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 - Infectious Disease History:: Denies. - Social history:: Smoking status: Patient denies any tobacco usage or history of. - Family history:: not pertinent. Screenin:26 Abuse screen: Denies threats or abuse. Nutritional screening: No deficits noted. Tuberculosis screening: No symptoms or risk factors identified. 20:49 [facility] ED Fall Risk Assessment (Adult) History of falling in the last 3 months, al5 including since admission No falls in past 3 months (0 pts) Confusion or Disorientation No (0 pts) Intoxicated or Sedated No (0 pts) Impaired Gait No (0 pts) Mobility Assist Device Used No (0 pt) Altered Elimination No (0 pt) Score/Fall Risk Level 0 - 2 = Low Risk Oriented to surroundings, Maintained a safe environment, Hourly rounding (assess needs \T\ fall precautionary measures) done. Assessment: 20:47 General: Appears in no apparent distress. comfortable, Behavior is calm, cooperative. al5 Pain: Complains of pain in anterior aspect of left upper chest Quality of pain is described as pressure. Neuro: Level of Consciousness is awake, alert, obeys commands, Oriented to person, place, time, situation. Cardiovascular: Capillary refill < 3 seconds Patient's skin is warm and dry. Rhythm is sinus rhythm. Cardiovascular: Reports high blood pressure. Respiratory: Airway is patent Respiratory effort is even, unlabored, Respiratory pattern is regular, symmetrical. GI: No signs and/or symptoms were reported involving the gastrointestinal system. : No signs and/or symptoms were reported regarding the genitourinary system. EENT: No signs and/or symptoms were reported regarding the EENT system. Derm: Skin is intact, is healthy with good turgor, Skin is pink, warm \T\ dry. normal. Musculoskeletal: No signs and/or symptoms reported regarding the musculoskeletal system. 21:53 Reassessment: Patient appears in no apparent distress at this time. No changes from al5 previously documented assessment. Patient and/or family updated on plan of care and expected duration. Pain level reassessed. Patient is alert, oriented x 3, equal unlabored respirations, skin warm/dry/pink. 22:43 Reassessment: Patient appears in no apparent distress at this time. Patient and/or al5 family updated on plan of care and expected duration. Pain level reassessed. Patient is alert, oriented x 3, equal unlabored respirations, skin warm/dry/pink. Patient states feeling better. Patient states symptoms have improved. Vital Signs: 20:22 BP 214 / 123; Pulse 110; Resp 18; Temp 99.2; Pulse Ox 100% ; Weight 106.59 kg; Height 5 kl ft. 6 in. ; 20:30 BP 199 / 124; Pulse 99; Resp 18; Pulse Ox 100% on R/A; al5 20:45 BP 198 / 114; Pulse 96; Resp 21; Pulse Ox 100% on R/A; al5 21:00 BP 178 / 99; Pulse 91; Resp 11; Pulse Ox 100% on R/A; al5 21:15 BP 172 / 105; Pulse 88; Resp 14; Pulse Ox 100% on R/A; al5 21:30 BP 184 / 103; Pulse 85; Resp 17; Pulse Ox 97% on R/A; al5 22:00 BP 168 / 93; Pulse 78; Resp 17; Pulse Ox 97% on R/A; al5 22:30 BP 162 / 94; Pulse 81; Resp 17; Pulse Ox 97% on R/A; al5 20:22 Body Mass Index 37.93 (106.59 kg, 167.64 cm) kl Karolina Coma Score: 03/10 05:45 Eye Response: spontaneous(4). Motor Response: obeys commands(6). Verbal Response: sp4 oriented(5). Total: 15. ED Course: 03/09 19:57 Patient arrived in ED. [email or web address] 20:09 Adam Mcclellan MD is Attending Physician. sp4 20:21 Noreen Aguilar RN is Primary Nurse. al5 20:24 Triage completed. kl 20:25 Arm band placed on right wrist. kl 20:48 Patient has correct armband on for positive identification. Bed in low position. Call al5 light in reach. Side rails up X 1. Provided Education on: plan of care, medications. 20:48 Door closed. Noise minimized. Lights dimmed. Warm blanket given. al5 20:48 No provider procedures requiring assistance completed. Inserted saline lock: 22 gauge al5 in right antecubital area, using aseptic technique. Blood collected. Flushed with 10 mL NS. 23:17 IV discontinued, intact, bleeding controlled, No redness/swelling at site. Pressure al5 dressing applied. Administered Medications: 20:43 Drug: cloNIDine PO 0.1 mg PO once Route: PO; al5 22:44 Follow up: Response: No adverse reaction; Blood pressure is lowered al5 20:43 Drug: amLODIPine PO 10 mg PO once Route: PO; al5 22:44 Follow up: Response: No adverse reaction; Blood pressure is lowered al5 20:43 Not Given (Patient Refused): diazepam5 mg PO once al5 Medication: 20:49 VIS not applicable for this client. al5 Outcome: 22:32 Discharge ordered by . sp4 23:17 Discharged to home ambulatory, al5 23:17 Condition: good 23:17 Discharge instructions given to patient, Instructed on discharge instructions, follow up and referral plans. medication usage, Demonstrated understanding of instructions, follow-up care, medications, Prescriptions given X 1, 23:17 Patient left the ED. al5 Signatures: Laura Maciel RN RN Corinne Chambers6 Adam Mcclellan MD MD sp4 Noreen Aguilar RN RN al5
[2024-03-09 23:27] VITALS: TEMP 99.2
[2024-03-09 23:46] VITALS: O2SAT 97
[2024-03-09 23:49] VITALS: BP 162/94
--- NOTE | 2024-03-13 10:53 | EKG ---
Test Date: 2024-03-09 Test Time: 20:31:07 Relay Technician: [id number] MEASUREMENT RESULTS: Intervals: Rate: 102 HI: 148 QRSD: 92 QT: 360 QTc: 469 [place]: P: 59 HI: 148 QRS: 16 T: 43 INTERPRETIVE STATEMENTS: Sinus tachycardia Voltage criteria for left ventricular hypertrophy Abnormal ECG Compared to ECG 12/22/2017 09:00:15 Sinus rhythm no longer present Electronically Signed On 03-13-24 10:50:27 SUPERVISOR SPINNING by Ritesh Rivera
== END 2024-03-09 23:17 | disposition home or self-care (01) ==
LOC: ER 19:55
DX: I16.0 Hypertensive urgency (principal); Z28.310 Unvaccinated for COVID-19
CPT/HCPCS: 36415; 80048; 80076; 83735; 83880; 84439; 84443; 84484; 85025; 85610; 93005; 99284